=== PATIENT | female | born 1985 | race African-American/Black ===

== ENCOUNTER 2023-05-19 23:20 | Emergency (ER) | payer SELFPAY ==
[~2023-05-19] VITALS: Ht 157.5 cm; Wt 63.0 kg
[2023-05-19 23:44] VITALS: O2SAT 98
[2023-05-20] MEDS ORDERED: HYDR-4001 MT (03:19)
[2023-05-20] MEDS ORDERED: AMOX-494 MT (03:19)
[2023-05-20 03:38] VITALS: BP 127/89; PULSE 95; RESP 14; TEMP 98.4
== END 2023-05-20 03:46 | disposition home or self-care (01) ==
LOC: ER 23:32
DX: K08.89 Other specified disorders of teeth and supporting structures (principal)
CPT/HCPCS: 99283